=== PATIENT | male | born 1955 | race African-American/Black ===

== ENCOUNTER 2016-09-10 13:45 | Emergency (ER) | payer OTHER ==
[~2016-09-10] VITALS: Ht 175.3 cm; Wt 106.1 kg
--- NOTE | ~2016-09-10 | EKG ---
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
[~2016-09-10 13:45] MED LIST: ALLOPURINOL 30300 M2 PO; AXIRON90 ML TOP; LEVOTHYROXIN0.125 M1 PO; NUVIGIL150 MG PO; VITAMIN B-121000 MC1 PO; VITAMIN D31000 UNI2 PO; XANAX 0.5 MG0.5 MG PO
[2016-09-10 14:14] LABS: BASOPHILS 0.5 % (0.0-2.0); EOSINOPHILS 1.1 % (0.0-3.0); HEMATOCRIT 36.8 % (42.0-52.0); LYMPHOCYTES 40.9 % (24.0-44.0); MCH 26.9 pg (26.0-34.0); MCHC 32.6 g/dL (28.0-37.0); MCV 82.6 fL (80.0-100.0); MONOCYTES 6.6 % (1.0-8.0); PLATELET COUNT 167 thou/uL (150-400); POLYS 50.9 % (36.0-66.0); RBC 4.46 mil/uL (4.50-6.00); RDW 15.2 % (10.5-14.5); WBC 7.9 thou/uL (4.0-11.0)
[2016-09-10 14:15] LABS: MANUAL DIFF NO
[2016-09-10 14:16] LABS: ANION GAP 7 mmol/L (7-16); BUN 19 mg/dL (7-18); CALCIUM 8.6 mg/dL (8.5-10.1); CHLORIDE 102 mmol/L (98-107); CO2 28 mmol/L (21-32); CREATININE 1.7 mg/dL (0.7-1.3); GLUCOSE 99 mg/dL (74-106); SODIUM 137 mmol/L (136-145)
[2016-09-10 14:25] LABS: TROPONIN-I < 0.04 ng/mL (<0.04-0.07)
== END 2016-09-10 14:52 | disposition home or self-care (01) ==
LOC: ER 13:45
PROVIDERS: Emergency Medicine
DX: S01.01XA Laceration without foreign body of scalp, initial encounter (principal); E03.9 Hypothyroidism, unspecified; M10.9 Gout, unspecified; G47.30 Sleep apnea, unspecified; F41.9 Anxiety disorder, unspecified; F10.99 Alcohol use, unspecified with unspecified alcohol-induced disorder; Z88.2 Allergy status to sulfonamides; Z87.891 Personal history of nicotine dependence; W01.198A Fall on same level from slipping, tripping and stumbling with subsequent striking against other object, initial encounter; Y93.89 Activity, other specified; Y92.89 Other specified places as the place of occurrence of the external cause; Y99.8 Other external cause status

== ENCOUNTER → 2016-11-25 | Outpatient (CLI) | payer OTHER ==
[2016-11-25 09:01] LABS: CREATININE 1.4 mg/dL (0.7-1.3)
== END ==
LOC: CATH 11-21 07:50 → OR 11-21 07:50 → CAT 11-21 07:50 → CATH 11-21 13:00
PROVIDERS: Nuclear Medicine Nuclear Cardiology
DX: Q24.5 Malformation of coronary vessels (principal)